=== PATIENT | male | born 1985 | race African-American/Black ===

== ENCOUNTER 2017-06-29 07:54 | Observation (INO) | payer SELFPAY ==
[2017-06-29] MEDS ORDERED: ONDANSETRON HCL INJ/PF 4 MG/2 ML SDV IV ONE (08:30)
[2017-06-29] MEDS ORDERED: MORPHINE SULFATE 10 MG/ML INJ IV ONE (08:30)
--- NOTE | 2017-06-29 08:36 | ER Document Report ---
ED General - General Chief Complaint: Abdominal Pain Stated Complaint: ABDOMINAL PAIN Time Seen by Provider: 06/29/17 08:30 Notes: 31-year-old male presents with right lower quadrant pain onset 3 AM we will can from sleep nonradiating constant, achy. He has vomited once does not want to eat and had one episode of diarrhea. He has no testicle pain swelling or penile discharge. Positive subjective fevers. - Related Data Allergies/Adverse Reactions: iodine Allergy (Verified 06/29/17 07:56) Past Medical History - Social History Smoking Status: Never Smoker Family History: None Review of Systems - Review of Systems Notes: REVIEW OF SYSTEMS GEN: Denies fever, chills, weight loss ENT: Denies sore throat, nasal discharge, ear pain EYES: Denies blurry vision, eye pain, discharge CV: Denies chest pain, palpitations, edema RESP: Denies cough, shortness of breath, wheezing GI: Right lower quadrant pain nausea anorexia diarrhea MSK: Denies joint pain/swelling, edema, SKIN: Denies rash, skin lesions LYMPH: Denies swollen glands/lymph nodes NEURO: Denies headache, focal weakness or numbness, dizziness PSYCH: Denies depression, suicidal or homicidal ideation PHYSICAL EXAMINATION General: No acute distress, well-nourished Head: Atraumatic, normocephalic ENT: Mouth normal, oropharynx moist, no exudates or tonsillar enlargement Eyes: Conjunctiva normal, pupils equal, lids normal Neck: No JVD, supple, no guarding CVS: Normal rate, regular rhythm, no murmurs Resp: No resp distress, equal and normal breath sounds bilaterally GI: Nondistended, soft, McBurney's point tenderness to palpation, no rebound or guarding Genitourinary: Normal penis and scrotum, no tenderness, normal testicle lie, intact Cremasteric Ext: No deformities, no edema, normal range of motion in upper and lower ext Back: No CVA or midline TTP Skin: No rash, warm Lymphatic: No lymphadeopathy noted Neuro: Awake, alert. Face symmetric. GCS 15. Physical Exam - Vital signs Vitals: Temp Pulse Resp BP Pulse Ox 99.8 F 113 H 18 120/79 98 06/29/17 08:02 06/29/17 08:02 06/29/17 08:02 06/29/17 08:02 06/29/17 08:02 Course - Re-evaluation Re-evalutation: 06/29/17 08:35 Right lower quadrant pain suspicious for appendix. Genital exam normal. Labs CT morphine and p.o. 06/29/17 08:48 Patient states he has a shellfish allergy which produces a rash. He has never had IV contrast. Spoke with Dr. Levy and she agrees that the crossover risk is low but she requested a prep with Pepcid Benadryl and Solu-Medrol. This was ordered. I think it is safe to give him contrast. 06/29/17 10:[address], unruptured. Spoke with Dr. Malagon from surgery who will admit and prescribe antibiotics. Patient informed. - Vital Signs Vital signs: Temp Pulse Resp BP Pulse Ox 99.8 F 113 H 18 120/79 98 06/29/17 08:02 06/29/17 08:02 06/29/17 08:02 06/29/17 08:02 06/29/17 08:02 - Laboratory Result Diagrams: 06/29/17 08:43 06/29/17 08:43 Laboratory results interpreted by me: 06/29/17 08:43 WBC 13.9 H Seg Neuts % (Manual) 92 H Lymphocytes % (Manual) 1 L Abs Neuts (Manual) 12.8 H Abs Lymphs (Manual) 0.3 L - Diagnostic Test Radiology reviewed: Image reviewed, Reports reviewed Discharge - Discharge Clinical Impression: Acute appendicitis with localized peritonitis Condition: Fair Disposition: ADMITTED INPATIENT Admitting Provider: Surgicalist Unit Admitted: Surgical Floor
[2017-06-29] MEDS ORDERED: DIPHENHYDRAMINE HCL 50 MG/ML VIAL IV PRN ×2 (08:46→14:02)
[2017-06-29] MEDS ORDERED: METHYLPREDNISOLONE INJ 40 MG/1 ML SDV IV ONE (08:47)
[2017-06-29] MEDS ORDERED: FAMOTIDINE INJ/PF 20 MG/2 ML SDV IV PRN (08:47)
[2017-06-29 08:55] LABS: HEMATOCRIT 43.3 % (37.9-51.0); HEMOGLOBIN 14.8 g/dL (13.5-17.0); MEAN CORPUSCULAR HEMOGLOBIN 32.7 pg (27.0-33.4); MEAN CORPUSCULAR HGB CONC 34.2 g/dL (32.0-36.0); MEAN CORPUSCULAR VOLUME 96 fl (80-97); PLATELET COUNT 242 10^3/uL (150-450); RED BLOOD COUNT 4.52 10^6/uL (4.35-5.55); RED CELL DISTRIBUTION WIDTH 11.6 % (11.5-14.0); WHITE BLOOD COUNT 13.9 10^3/uL (4.0-10.5)
[2017-06-29 09:14] LABS: ABSOLUTE LYMPHOCYTES# (MANUAL) 0.3 10^3/uL (0.5-4.7); ABSOLUTE MONOCYTES # (MANUAL) 0.7 10^3/uL (0.1-1.4); ABSOLUTE NEUTROPHILS# (MANUAL) 12.8 10^3/uL (1.7-8.2); BASOPHILS % (MANUAL) 1 % (0-2); EOSINOPHILS % (MANUAL) 0 % (0-6); LYMPHOCYTES % (MANUAL) 1 % (13-45); MONOCYTES % (MANUAL) 5 % (3-13); RBC MORPHOLOGY COMMENT NORMO-CYTIC/CHROMIC; SEGMENTED NEUTROPHILS % (MAN) 92 % (42-78); TOTAL CELLS COUNTED 100; TOXIC GRANULATION SLIGHT
[2017-06-29 09:15] LABS: PLATELET COMMENT ADEQUATE
[2017-06-29 09:16] LABS: ANION GAP 8 (5-19); BLOOD UREA NITROGEN 13 mg/dL (7-20); CALCIUM 10.1 mg/dL (8.4-10.2); CARBON DIOXIDE 30 mmol/L (22-30); CHLORIDE 102 mmol/L (98-107); GLUCOSE 110 mg/dL (75-110); POTASSIUM 4.3 mmol/L (3.6-5.0); SODIUM 139.9 mmol/L (137-145)
[2017-06-29 09:42] LABS: APPEARANCE,URINE CLEAR; BILIRUBIN,URINE NEGATIVE (NEGATIVE); COLOR,URINE YELLOW; GLUCOSE, URINE NEGATIVE (NEGATIVE); KETONES,URINE NEGATIVE (NEGATIVE); LEUKOCYTE ESTERASE,URINE NEGATIVE (NEGATIVE); NITRITE,URINE NEGATIVE (NEGATIVE); PROTEIN,URINE NEGATIVE (NEGATIVE); URINE SPECIFIC GRAVITY 1.018; UROBILINOGEN,URINE NEGATIVE mg/dL (<2.0)
[2017-06-29] MEDS ORDERED: NEOSTIGMINE METHYLSULFATE 10 MG/10 ML VIAL ONE (10:25)
[2017-06-29] MEDS ORDERED: GLYCOPYRROLATE INJ 0.4 MG/2 ML VIAL ONE (10:25)
[2017-06-29] MEDS ORDERED: SUCCINYLCHOLINE CHLORIDE INJ 200 MG/10 ML VIAL ONE (10:25)
[2017-06-29] MEDS ORDERED: VECURONIUM BROMIDE INJ 10 MG VIAL IV ONE (10:25)
--- NOTE | 2017-06-29 10:46 | RADIOLOGY REPORT (SQ) ---
EXAM DESCRIPTION: CT ABD/PELVIS WITH IV ONLY COMPLETED DATE/TIME: 06/29/2017 10:15 am REASON FOR STUDY: Right lower quadrant pain rule out appendicitis COMPARISON: None. TECHNIQUE: CT scan of the abdomen and pelvis performed using helical scanning technique with dynamic intravenous contrast injection. No oral contrast. Images reviewed with lung, soft tissue, and bone windows. Reconstructed coronal and sagittal MPR images reviewed. Delayed images for evaluation of the urinary system also acquired. All images stored on PACS. All CT scanners at this facility use dose modulation, iterative reconstruction, and/or weight based d osing when appropriate to reduce radiation dose to as low as reasonably achievable (ALARA). [facility]: Dose Right [facility]: CareDose [facility]: Dose Right [facility]: Teradose 4D [facility]: investUP CONTRAST TYPE AND DOSE: contrast/concentration: Isovue 370.00 mg/ml; Total Contrast Delivered: 89.0 ml; Total Saline Delivered: 67.0 ml RENAL FUNCTION: Creatinine 0.96 RADIATION DOSE: CT Rad equipment meets quality standard of care and radiation dose reduction techniq ues were employed. CTDIvol: 6.9 - 9.8 mGy. DLP: 920 mGy-cm.. LIMITATIONS: None. FINDINGS: There is acute appendicitis, with an enlarged inflamed appendix in the right lower quadran t, best shown on axial images 55 through 69. This report was called to Dr. Mosquera, 1030 hours 018. LOWER CHEST: No significant findings. No nodules or infiltrates. LIVER: Normal size. No masses. No dilated ducts. SPLEEN: Normal size. No focal lesions. PANCREAS: No masses. No significant calcifications. No adjacent inflammation or peripancreatic fluid collections. Pancreatic duct not dilated. GALLBLADDER: No identified stones by CT criteria. No inflammatory changes to suggest cholecystitis. ADRENAL GLANDS: No significant masses or asymmetry. RIGHT KIDNEY AND URETER: No solid masses. No significant calcifications. No hydronephrosis or hyd roureter. LEFT KIDNEY AND URETER: No solid masses. No significant calcifications. No hydronephrosis or hydr oureter. AORTA AND VESSELS: No aneurysm. No dissection. Renal arteries, SMA, celiac without stenosis. RETROPERITONEUM: No retroperitoneal adenopathy, hemorrhage or masses. BOWEL AND PERITONEAL CAVITY: No masses or inflammatory changes. No free fluid or peritoneal masses. APPENDIX: Acute appendicitis PELVIS: No mass. No free fluid. Normal bladder. ABDOMINAL WALL: No masses. No hernias. BONES: No significant or acute findings. OTHER: No other significant finding. IMPRESSION: Acute appendicitis TECHNICAL DOCUMENTATION: JOB ID: [id number] Quality ID # [id number]: Final reports with documentation of one or more dose reduction techniques (e.g., Au tomated exposure control, adjustment of the mA and/or kV according to patient size, use of iterative reconstruction technique) 2010 [employer]- All Rights Reserved
[2017-06-29] MEDS ORDERED: ACETAMINOPHEN 325 MG TABLET PO PRN (11:00)
[2017-06-29] MEDS ORDERED: DEXTROSE 5%-LACTATED RINGERS 1,000 ML IV PRN (11:00)
[2017-06-29] MEDS ORDERED: OXYCODONE-ACETAMINOPHEN 5-325 MG TABLET PO PRN ×3 (11:00→14:02)
[2017-06-29] MEDS ORDERED: PROMETHAZINE HCL INJ 25 MG/1 ML VIAL IV PRN ×3 (11:00→14:02)
[2017-06-29] MEDS ORDERED: ONDANSETRON 4 MG TAB.RAPDIS PO PRN (11:00)
[2017-06-29] MEDS ORDERED: PROMETHAZINE HCL 25 MG TABLET PO PRN (11:00)
[2017-06-29] MEDS ORDERED: MORPHINE SULFATE 10 MG/ML INJ IV PRN ×2 (11:00→14:02)
[2017-06-29] MEDS ORDERED: ZOLPIDEM TARTRATE 5 MG TABLET PO PRN (11:00)
[2017-06-29] MEDS ORDERED: ENOXAPARIN SODIUM INJ 40 MG/0.4 ML DISP.SYRIN SUBCUT ONE (12:00)
[2017-06-29] MEDS ORDERED: CEFAZOLIN INJ 1 GM VIAL ONE (13:05)
[2017-06-29] MEDS ORDERED: LIDOCAINE 2% INJ-PF (20 MG/ML) 10 ML AMPUL ONE (13:12)
[2017-06-29] MEDS ORDERED: ONDANSETRON HCL INJ/PF 4 MG/2 ML SDV ONE (13:13)
[2017-06-29] MEDS ORDERED: DEXAMETHASONE SOD PHOSPHATE INJ 4 MG/1 ML VIAL ONE (13:13)
[2017-06-29] MEDS ORDERED: FENTANYL CITRATE INJ/PF 100 MCG/2 ML AMPUL ONE (13:13)
[2017-06-29] MEDS ORDERED: MIDAZOLAM 2 MG/2 ML INJ ONE (13:13)
[2017-06-29] MEDS ORDERED: ACETAMINOPHEN 0 ML IV ONE (13:13)
[2017-06-29] MEDS ORDERED: PROPOFOL INJ 200 MG/20 ML VIAL IV ONE (13:13)
[2017-06-29] MEDS ORDERED: HYDROMORPHONE HCL INJ/PF 2 MG/ML AMPULE ONE (13:14)
[2017-06-29] MEDS ORDERED: BUPIVACAINE HCL 0.5%-EPI 1:200000 INJ/PF 30 ML VIAL ONE (13:50)
[2017-06-29] MEDS ORDERED: FENTANYL CITRATE INJ/PF 100 MCG/2 ML AMPUL IV PRN ×3 (14:02)
[2017-06-29] MEDS ORDERED: MEPERIDINE HCL/PF INJ 25 MG/1 ML DISP.SYRIN IV PRN (14:02)
[2017-06-29] MEDS ORDERED: ONDANSETRON HCL INJ/PF 4 MG/2 ML SDV IV PRN (14:02)
--- NOTE | 2017-06-29 14:37 | PDOC H&P ---
History of Present Illness Admission Date/PCP: 06/29/17 10:24 Patient complains of: Abdominal pain History of Present Illness: LISA NASH JR is a 31 year old male who presents with a one day history of abdominal pain. He reports onset of abdominal pain around 2 AM this morning. The pain was initially sharp and located in the right lower quadrant. Over the course of the morning, the pain is intensified and become more diffuse. He reports anorexia. Has had no diarrhea. Had some nausea and one episode of vomiting. He reports no fevers or chills. He was seen in the ED. A CT scan was done which revealed findings consistent with acute appendicitis. Past Medical History Medical History: None Past Surgical History Past Surgical History: Reports: None Social History Information Source: Patient Smoking Status: Never Smoker Cigarettes Packs Per Day: 0 Frequency of Alcohol Use: Occasional - Advance Directive Resuscitation Status: Full Code Family History Family History: None Parental Family History Reviewed: No Children Family History Reviewed: No Sibling(s) Family History Reviewed.: No Medication/Allergy Home Medications: No Home Medications 06/29/17 Allergies/Adverse Reactions: iodine Allergy (Verified 06/29/17 07:56) Physical Exam Vital Signs: Temp Pulse Resp BP Pulse Ox 99.8 F 84 20 114/71 96 06/29/17 08:02 06/29/17 11:35 06/29/17 11:35 06/29/17 11:35 06/29/17 11:35 General appearance: PRESENT: other Eye exam: PRESENT: EOMI, PERRLA Neck exam: PRESENT: other - Neck is supple without adenopathy or thyromegaly Respiratory exam: PRESENT: clear to auscultation lucien Cardiovascular exam: PRESENT: RRR GI/Abdominal exam: PRESENT: other - Abdomen is soft, he is tender in the right lower quadrant with guarding. He does have a psoas sign. Bowel sounds are diminished. Results Impressions: Abdomen/Pelvis CT 06/29/17 08:30 IMPRESSION: Acute appendicitis Assessment & Plan - Diagnosis (1) Acute appendicitis with localized peritonitis Is this a current diagnosis for this admission?: Yes - Time Time Spent: 30 to 50 Minutes - Plan Summary Plan Summary: The patient has findings consistent with acute appendicitis. I recommended admission to the hospital and proceed with laparoscopic appendectomy. The risks and comp occasions were discussed the patient. He understands and agrees to proceed.
--- NOTE | 2017-06-29 14:41 | Operative Report ---
Operative Report DATE OF SURGERY: 06/29/17 PREOPERATIVE DIAGNOSIS: Acute appendicitis POSTOPERATIVE DIAGNOSIS: Acute appendicitis OPERATION: Laparoscopic appendectomy SURGEON: JESSE CINTRON ANESTHESIA: GA TISSUE REMOVED OR ALTERED: Appendix COMPLICATIONS: None ESTIMATED BLOOD LOSS: Minimal INTRAOPERATIVE FINDINGS: Acute appendicitis without perforation PROCEDURE: After informed consent, the patient was taken to the operating room. After administration of general endotracheal anesthesia, he was prepped and draped in sterile fashion. Ancef 2 g was given IV prior to induction of anesthesia. A surgical pause was performed to confirm patient identification and procedure to be performed. An informed local 10 mm incision was made. Dissection was carried out and the abdomen was entered in standard fashion. A 0 Vicryl [id number] fascial stay suture was placed. The [place] trocar was introduced. Pneumoperitoneum was established. Additional ports were then placed. I placed to additional 5 mm ports in the low midline under direct visualization. All trochars were placed without difficulty. The appendix was visualized and found to be acutely inflamed. The mesoappendix was divided using the harmonic scalpel. A PDS Endoloop was placed at the appendiceal cecal junction. A Vicryl Endoloop was placed distal to this. The appendix was then transected. The appendix was retrieved with the assistance of an Endo Catch bag. After assurance of hemostasis, all trochars were withdrawn. The 10 mm site was closed with 0 Vicryl suture. The wounds were irrigated and skin closed with 4-0 Monocryl subcuticular closure. 20 cc of quarter percent Marcaine with out epinephrine was used for local anesthesia at the trocar sites. Dermabond was applied. The patient told to do well, his and anesthesia, transferred to the recovery in stable condition.
[2017-06-29] MEDS ORDERED: FAMOTIDINE 20 MG TABLET PO SCH (22:00)
--- NOTE | 2017-06-30 08:33 | PDOC DISCHARGE SUMMARY ---
Discharge Summary (SDC) - Discharge Final Diagnosis: acute appendicitis Date of Surgery: 06/29/17 Condition: Good Treatment or Instructions: laparoscopic appendectomhy 06/29/2017 Prescriptions: Oxycodone HCl/Acetaminophen [Percocet 5-325 mg Tablet] 1 tab PO Q4HP PRN #15 tablet PRN Reason: For Pain Scale 3-5 Referrals: PINKY WHITLOCK MD [ACTIVE STAFF] - Respiratory Treatments at Home: Deep Breathing/Coughing Discharge Activity: Activity As Tolerated, Other - no lifting greater than 20 pounds for 4 weeks. May shower tonight. Home Care Assistance: None Needed Report the Following to Your Physician Immediately: Nausea, Vomiting, Fever over 101 Degrees, Drainage-Foul Smelling Provider Note Provider Note: The patient presented with acute pain consistent with appendicitis. A CT was done which confirmed acute appendicitis. He was taken to the operating room on the day of admission and underwent lap appendectomy. He has done well post op and will be discharged on post op day 1. He is tolerating a diet and ambulating well. His pain is well controlled. He has had no nausea or vomiting. His wounds are healing well without evidence of infection. He will be discharged today with followup with the PA at [facility] in 1-2 weeks. Discharge instructions were given to the patient.
[2017-06-30] MEDS ORDERED: ENOXAPARIN SODIUM INJ 40 MG/0.4 ML DISP.SYRIN SUBCUT SCH (10:00)
[2017-06-30 10:12] VITALS: BP 147/71
== END 2017-06-30 10:50 | disposition home or self-care (01) ==
LOC: ER 07:54 → EH 10:24 → INTOOBSV 10:24 → 2N 16:03
PROVIDERS: ATTEND Specialist
PROC: 0DTJ4ZZ Resection of Appendix, Percutaneous Endoscopic Approach (ICD-10-PCS; principal; 2017-06-29 13:45)
DX: K35.80 Unspecified acute appendicitis (principal)
CPT/HCPCS: 99285; 96374; 96375; 36415; 85025; 80048; 81001; 88304 ×2; 74177; 44970; G0378 ×3; J2250; J3490 ×3; J0690; J1100; J1200; J2920; J2270; J1170; J0330; J2405; J2704; S0028; 840; J0131; J3010